=== PATIENT | male | born 1960 | race Caucasian/White ===

== ENCOUNTER 2024-05-19 08:57 | Observation (INO) ==
[2024-05-19 11:39] LABS: Hemoglobin 15.8 g/dL (13.2-16.3); Mean Corpuscular Hemoglobin 32.4 pg (27-33); Mean Corpuscular Hgb Conc 33.6 g/dL (31-36); Mean Corpuscular Volume 96.4 fL (80-97); Mean Platelet Volume 8.9 fL (7.5-11.2); Platelet Count 230 10^3/uL (150-450); Red Blood Count 4.87 10^6/uL (4.06-5.63); Red Cell Distribution Width 13.2 % (12-17); White Blood Count 22.4 10^3/uL (3.6-10.2)
[2024-05-19 12:20] LABS: ABS Basophils 0.1 10^3/uL (0.0-0.1); ABS Lymphocytes 1.9 10^3/uL (1.0-4.8); ABS Monocytes 1.7 10^3/uL (0.0-1.1); ABS Neutrophils 18.6 10^3/uL (1.5-7.6); Eosinophil % 0.1 %; Lymphocyte % 8.7 %
[2024-05-19 12:51] LABS: Albumin 4.5 g/dL (3.2-5.2); Albumin/Globulin Ratio 1.6 (1-3); CRP High Sensitivity 40.12 mg/L (<2.00); Calcium 9.7 mg/dL (8.6-10.3); Creatinine, Serum 1.39 mg/dL (0.67-1.17); Globulin 2.8 g/dL (2-4); Potassium 4.5 mmol/L (3.5-5.0); Total Bilirubin 0.7 mg/dL (0.2-1.0); Total Protein 7.3 g/dL (6.4-8.9); eGFR CKD-EPI 55.9 (>60)
[2024-05-19] MEDS: Iodixanol (CONTRAST) 320 MG/ML 100 ML SDV IV ONE (13:37)
[2024-05-19] MEDS: cefTRIAXone 1 gm/50 mL D5W 1 GM/50 ML BAG IV ONE (14:25)
[2024-05-19] MEDS: Dexamethasone IV 4 MG/ML VIAL 1 ml VIAL IV SLOW PU ONE ×2 (14:39→15:57)
[2024-05-19] MEDS ORDERED: Zosyn per Pharmacy NOTE FOLLOW UP SCH ×2 (15:00→16:00)
[2024-05-19] MEDS ORDERED: Vancomycin 1,750 MG in NS 0.9% 250 ml 250 ML IVPB ONE (15:00)
[2024-05-19] MEDS: Piperacillin/Tazobac 3.375 BAG 3.375 GM/100 ML BAG IV ONE ×2 (15:39→15:56)
[2024-05-19] MEDS: Enoxaparin 40 MG/0.4 ML SYR SUBCUT SCH (15:57)
[2024-05-19] MEDS ORDERED: Vancomycin per Pharmacy 1 EA NOTE FOLLOW UP SCH (16:00)
[2024-05-19] MEDS: Vancomycin 1,750 MG in NS 0.9% 500 ml BAG 500 ML IVPB ONE (16:56)
[2024-05-19] MEDS ORDERED: ZOSYN 3.375 GM Q8H per EXTENDED INFUSION IV SCH (20:00)
[2024-05-19] MEDS: Lactated Ringers 1000 ml BAG 1,000 ML IV SCH (20:39)
[2024-05-19] MEDS: ZOSYN 3.375 GM Q8H per EXTENDED INFUSION IV SCH (23:24)
[2024-05-20] MEDS: ZOSYN 3.375 GM Q8H per EXTENDED INFUSION IV SCH (00:33)
[2024-05-20 05:41] LABS: Hematocrit 42.9 % (38-53); Hemoglobin 14.5 g/dL (13.2-16.3); Mean Corpuscular Hemoglobin 33.1 pg (27-33); Mean Corpuscular Hgb Conc 33.9 g/dL (31-36); Mean Corpuscular Volume 97.7 fL (80-97); Platelet Count 203 10^3/uL (150-450); Red Blood Count 4.39 10^6/uL (4.06-5.63); Red Cell Distribution Width 13.1 % (12-17); White Blood Count 18.5 10^3/uL (3.6-10.2)
[2024-05-20 05:49] VITALS: BP 93/65
[2024-05-20 05:55] LABS: Creatinine, Serum 1.31 mg/dL (0.67-1.17); Potassium 4.8 mmol/L (3.5-5.0)
[2024-05-20] MEDS: Vancomycin 750 MG in NS 0.9% 250 ML IVPB SCH (06:25)
[2024-05-20] MEDS: Nicotine PATCH 21 MG/24 HR PATCH TRANSDERM SCH (08:43)
[2024-05-20] MEDS: Dexamethasone IV 4 MG/ML VIAL 1 ml VIAL IV SLOW PU SCH (08:44)
[2024-05-21] MEDS ORDERED: Vancomycin Trough Check NOTE FOLLOW UP ONE (06:00)
== END 2024-05-20 12:05 | disposition home or self-care (01) ==
LOC: ED 08:57 → EDHOLD 08:57 → SSU 16:55
PROVIDERS: ADMIT Family Medicine; ATTEND Family Medicine